=== PATIENT | male | born 1985 | race Caucasian/White ===

== ENCOUNTER 2019-02-28 18:04 | Emergency (ER) | payer MEDICARE, MEDICAID ==
[2019-02-28 18:55] VITALS: BP 144/92
--- NOTE | 2019-02-28 19:22 | UC ---
Skin Complaint HPI - HPI Summary HPI Summary: 33 yo male presents accompanied by his mother. The majority of the history if provided by the mother as pt is disabled. Mom tells me that she removed a tick from pt's abdomen earlier today - thinks he may have been on him for about 5-6 days since that is when he went for a nature walk. Site is not painful. Tick is with them and does not appear engorged. - History of Current Complaint Chief Complaint: UCSkin Time Seen by Provider: 02/28/19 19:21 Stated Complaint: TICK BITE Hx Obtained From: Patient, Family/Transportation Mechanic Hx From Patient Unobtainable Due To: Altered Mental Status Onset Severity: Mild Current Severity: Mild Pain Intensity: 2 Pain Scale Used: 0-10 Numeric - Allergy/Home Medications Allergies/Adverse Reactions: Allergies Allergy/AdvReac Type Severity Reaction Status Date / Time No Known Allergies Allergy Verified 02/28/19 18:56 Home Medications: Home Medications Primidone TAB(*) [Mysoline TAB(*)] 350 mg PO DAILY 02/28/19 [History Confirmed 02/28/19] PMH/Surg Hx/FS Hx/Imm Hx - Additional Past Medical History Additional PMH: Mentally disabled Neurological History: Seizures - Surgical History Surgical History: None - Family History Known Family History: Positive: None - Social History Lives: With Family Alcohol Use: None Substance Use Type: None Smoking Status (MU): Never Smoked Tobacco Review of Systems All Other Systems Reviewed And Are Negative: Yes Constitutional: Positive: Negative Skin: Positive: Other - Tick bite abdomen Respiratory: Positive: Negative Cardiovascular: Positive: Negative Neurovascular: Positive: Negative Musculoskeletal: Positive: Negative Neurological: Positive: Negative Psychological: Positive: Negative Physical Exam - Summary Physical Exam Summary: GENERAL: NAD. WDWN. No pain distress. SKIN: Superior umbilicus: there is a 7mm diameter of mild erythema and edema with central 1mm area of superficial skin loss. No streaking, bleeding, or drainage. NECK: Supple. Nontender. No lymphadenopathy. CHEST: No accessory muscle use. Breathing comfortably and in no distress. CV: Pulses intact. Cap refill <2seconds NEURO: Alert. PSYCH: Age appropriate behavior. Triage Information Reviewed: Yes Vital Signs: Initial Vital Signs Temp 98.8 F 02/28/19 18:51 Pulse 88 02/28/19 18:51 Resp 16 02/28/19 18:51 BP 144/92 02/28/19 18:51 Pulse Ox 99 02/28/19 18:51 Vital Signs Reviewed: Yes Course/Dx - Course Course Of Treatment: tick does not appear engorged that they have with them today. He was given 200mg doxycycline in the clinic as prophylactic as they suspect it may have been attached several days. Advised to monitor for signs/symptoms of lyme and f/ u if develops. - Diagnoses Provider Diagnosis: Tick bite Discharge - Sign-Out/Discharge Documenting (check all that apply): Patient Departure All imaging exams completed and their final reports reviewed: No Studies - Discharge Plan Condition: Stable Disposition: HOME Patient Education Materials: Tick Bite (ED) Referrals: Zhen Andrew MD [Primary Care Provider] - Additional Instructions: If you develop a fever, shortness of breath, chest pain, new or worsening symptoms - please call your PCP or go to the ED immediately. Your blood pressure was high at todays visit. Please see your primary provider within 4 weeks for recheck and re-evaluation. TICK BITE: You have been bitten by a tick. Once the tick is removed, these "bites" usually cause no problems. Tick fever, tick paralysis, [place] Spotted fever, and Lyme disease are uncommon -- but you should mention this tick bite to your doctor if you develop unusual symptoms in the next several weeks. If you develop any of the following, please see your physician promptly: (1) Fever, chills, or generalized malaise associated with a headache. (2) A red round area at the site of the bite (or elsewhere) (3) Joint pain, joint swelling or generalized weakness. (4) Redness, swelling, or drainage at the site of the bite. - Billing Disposition and Condition Condition: STABLE Disposition: Home
[2019-02-28] MEDS ORDERED: DOXYcycline CAP(*) 100 MG PO ONE (19:39)
== END 2019-02-28 19:52 | disposition home or self-care (01) ==
LOC: UCEAST 18:04
DX: S30.861A Insect bite (nonvenomous) of abdominal wall, initial encounter (principal); W57.XXXA Bitten or stung by nonvenomous insect and other nonvenomous arthropods, initial encounter; Y93.9 Activity, unspecified; R56.9 Unspecified convulsions
CPT/HCPCS: 99212; A9270-GY; G0463